=== PATIENT | male | born 2000 | race Caucasian/White ===

== ENCOUNTER 2024-04-18 20:03 | Emergency (ER) | payer BC ==
[2024-04-18] MEDS ORDERED: Ibuprofen 200 MG TAB ONE (23:56)
[2024-04-19] MEDS ORDERED: Ondansetron ODT 4 MG TAB ONE (00:01)
== END 2024-04-19 01:01 | disposition home or self-care (01) ==
LOC: CSHERS 20:03
DX: J11.1 Influenza due to unidentified influenza virus with other respiratory manifestations (principal)
CPT/HCPCS: 87428; 93005; 99283; Q0162